=== PATIENT | female | born 1995 | race Two or more races ===

== ENCOUNTER 2019-02-05 16:07 | Observation (INO) ==
[2019-02-05 16:39] LABS: BASOPHILS # (AUTO) 0.05 10*3/UL; BASOPHILS % (AUTO) 0.5 % (0-1); EOSINOPHILS # (AUTO) 0.42 10*3/UL; EOSINOPHILS % (AUTO) 4.5 % (0-8); Hematocrit [HCT] 38.1 % (37.0-47.0); Hemoglobin [HGB] 12.2 g/dL (12.0-16.0); LYMPHOCYTES # (AUTO) 3.41 10*3/uL; MEAN CORPUSCULAR VOLUME 84.3 FL (81-99); MEAN PLATELET VOLUME 9.2 FL (7.4-12.2); MONOCYTES # (AUTO) 0.53 10*3/UL (0.3-0.8); MONOCYTES % (AUTO) 5.7 % (5-15); NEUTROPHILS # (AUTO) 4.92 10*3/UL; NEUTROPHILS % (AUTO) 52.7 % (50-80); RED BLOOD COUNT 4.52 10^6/uL (4.20-5.40)
[2019-02-05 16:41] LABS: PLATELET MORPHOLOGY COMMENT NORMAL MORPHOLOGY (NORM); RBC MORPHOLOGY COMMENT NORMAL MORPHOLOGY (NORM); WBC MORPHOLOGY COMMENT NORMAL MORPHOLOGY (NORM)
[2019-02-05 16:49] LABS: BLOOD UREA NITROGEN 16 mg/dL (7-22); BUN/CREATININE RATIO 17.77 (6-20); SERUM ALBUMIN 4.5 g/dL (3.5-4.8)
[2019-02-05 16:49] LABS: BILIRUBIN,URINE NEGATIVE (NEG); CLARITY,URINE CLEAR (CLEAR); COLOR,URINE YELLOW (Y); GLUCOSE, URINE (UA) NEGATIVE (NEG); OCCULT BLOOD,URINE TRACE (NEG); PH,URINE 6.5 (5.0-8.5); PROTEIN,URINE NEGATIVE (NEG); URINE SAMPLE TYPE CLEAN CATCH URINE; UROBILINOGEN,URINE 0.2 EU/dL (0.2)
[2019-02-05] MEDS ORDERED: ALBUTEROL SULFATE 2.5 MG/3 ML NEB ONE (20:59)
[2019-02-05] MEDS ORDERED: Lactated Ringers 1,000 ML PRIMARY IV SCH (23:02)
[2019-02-05] MEDS ORDERED: ACETAMINOPHEN 325 MG TABLET PO PRN (23:02)
[2019-02-05] MEDS ORDERED: LIDOCAINE W/ SODIUM BICARB 0.5 ML SYR SUBD PRN (23:02)
[2019-02-05] MEDS: D5-LR 1,000 ML PRIMARY IV SCH (23:59)
[2019-02-06] MEDS ORDERED: IPRATROPIUM/ALBUTEROL SULFATE 3 ML NEB NEB PRN (04:20)
[2019-02-06 05:29] LABS: BASOPHILS # (AUTO) 0.05 10*3/UL; BASOPHILS % (AUTO) 0.7 % (0-1); EOSINOPHILS # (AUTO) 0.42 10*3/UL; EOSINOPHILS % (AUTO) 6.2 % (0-8); Hematocrit [HCT] 34.2 % (37.0-47.0); Hemoglobin [HGB] 11.2 g/dL (12.0-16.0); LYMPHOCYTES # (AUTO) 2.94 10*3/uL; MEAN CORPUSCULAR HGB CONC 32.7 g/dL (33-37); MEAN PLATELET VOLUME 9.3 FL (7.4-12.2); MONOCYTES # (AUTO) 0.46 10*3/UL (0.3-0.8); MONOCYTES % (AUTO) 6.8 % (5-15); NEUTROPHILS # (AUTO) 2.92 10*3/UL; PLATELET MORPHOLOGY COMMENT NORMAL MORPHOLOGY (NORM); RBC MORPHOLOGY COMMENT NORMAL MORPHOLOGY (NORM); RED BLOOD COUNT 4.07 10^6/uL (4.20-5.40); WBC MORPHOLOGY COMMENT NORMAL MORPHOLOGY (NORM)
[2019-02-06 05:37] LABS: BLOOD UREA NITROGEN 10 mg/dL (7-22); BUN/CREATININE RATIO 14.28 (6-20); SERUM ALBUMIN 3.6 g/dL (3.5-4.8)
[2019-02-06] MEDS: D5-LR 1,000 ML PRIMARY IV SCH (07:14)
[2019-02-06 13:12] VITALS: BP 107/65; RESP 18; TEMP 97.8
[2019-02-06 14:01] VITALS: O2SAT 98
[2019-02-06] MEDS ORDERED: METHOTREXATE 50 MG/2 ML IM ONE ×2 (14:28→15:00)
== END 2019-02-06 17:33 | disposition home or self-care (01) ==
LOC: MED/SURG 16:07 → ER 16:07 → MED/SURG 22:52
PROVIDERS: ADMIT Obstetrics & Gynecology; ATTEND Obstetrics & Gynecology